=== PATIENT | female | born 1985 | race African-American/Black ===

== ENCOUNTER 2017-10-04 01:23 | Emergency (ER) | payer BC, OTHER ==
[~2017-10-04] VITALS: Ht 170.2 cm; Wt 74.8 kg
--- NOTE | 2017-10-04 01:36 | NUR ---
Pt BIBRA/[employer] FOR 5150 HOLD FOR BIZARRE BEHAVIOR AND DANGER TO OTHERS. Pt IS REFUSING TO ANSWER ANY QUESTIONS. ON TRISHA WRIST RESTRAINTS FOR SAFETY. Pt IS HEARING VOICES AND TALKING OUT LOUD.
[2017-10-04 02:14] LABS: BASOPHILS % (AUTO) 0.7 % (0.0-2.0); EOSINOPHILS % (AUTO) 3.2 % (0.0-6.0); HEMATOCRIT 36 % (33-45); HEMOGLOBIN 12.1 g/dL (11.5-14.8); LYMPHOCYTES # (AUTO) 1.9 /CMM (0.8-4.8); LYMPHOCYTES % (AUTO) 27.5 % (20.0-44.0); MEAN CORPUSCULAR HGB CONC 34 g/dl (31.0-36.0); MEAN CORPUSCULAR VOLUME 83 fL (82-100); MONOCYTES # (AUTO) 0.6 /CMM (0.1-1.30); MONOCYTES % (AUTO) 8.8 % (2.0-12.0); NEUTROPHILS # (AUTO) 4.1 /CMM (1.8-8.9); NEUTROPHILS % (AUTO) 59.8 % (43.0-81.0); PLATELET COUNT (AUTO) 268 /CMM (150-450); RED BLOOD CELL COUNT(AUTO) 4.36 MIL/uL (4.0-5.2); WHITE BLOOD COUNT (AUTO) 6.8 K/uL (4.3-11.0)
[2017-10-04 02:29] LABS: ALANINE AMINOTRANSFERASE 20 U/L (12-78); ALBUMIN 3.5 g/dL (3.4-5.0); ALCOHOL, BLOOD < 3 mg/dL (0-0); ALKALINE PHOSPHATASE 55 U/L (46-116); ASPARTATE AMINOTRANSFERASE 15 U/L (15-37); BILIRUBIN,DIRECT 0.1 mg/dL (0.0-0.2); BILIRUBIN,TOTAL 0.3 mg/dL (0.2-1.0); CALCIUM, SERUM 9.3 mg/dL (8.5-10.1); CARBON DIOXIDE 28 mmol/L (21-32); CHLORIDE 105 mmol/L (98-107); CREATININE 0.8 mg/dL (0.6-1.3); GLUCOSE 103 mg/dL (74-106); POTASSIUM 3.4 mmol/L (3.5-5.1); SODIUM SERUM 139 mmol/L (136-145); TOTAL PROTEIN, SERUM 7.3 g/dL (6.4-8.2); UREA NITROGEN, BLOOD 8 mg/dL (7-18)
[2017-10-04 02:37] LABS: ACETAMINOPHEN 0 ug/ml (10-30)
--- NOTE | 2017-10-04 02:48 | NUR ---
CALLED JEMIMA HORTON FOR PSYCH EVALUATION
--- NOTE | 2017-10-04 03:11 | NUR ---
UNABLE TO OBTAIN URINE SAMPLE AT THIS TIME FROM Pt. PER Pt SAID SHE DOES NOT NEED TO PEE.
--- NOTE | 2017-10-04 03:47 | NUR ---
PSYCH EVAL COMPLETE. FIRST OFFICER WILL KEEP PT ON HOLD AT THIS TIME DUE TO BEHAVIOR
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
[2017-10-04] MEDS ORDERED: HALOPERIDOL LACTATE INJ 5 MG/ML VIAL IM ONE (04:00)
[2017-10-04] MEDS ORDERED: POTASSIUM CHLORIDE 20 MEQ TAB.PRT.SR PO ONE ×2 (04:00→04:08)
[2017-10-04] MEDS ORDERED: diphenhydrAMINE HCL 50 MG/ML VIAL IM ONE (04:00)
[2017-10-04] MEDS ORDERED: LORAZEPAM INJ 2 MG/ML VIAL IM ONE (04:00)
[2017-10-04] MEDS ORDERED: HALOPERIDOL LACTATE INJ 5 MG/ML VIAL ONE (04:07)
[2017-10-04] MEDS ORDERED: diphenhydrAMINE HCL 50 MG/ML VIAL ONE (04:07)
[2017-10-04] MEDS ORDERED: LORAZEPAM INJ 2 MG/ML VIAL ONE (04:08)
--- NOTE | 2017-10-04 04:28 | NUR ---
KDUR 20MEQ GIVEN CRUSHED WITH PUDDING. ATIVAN 2MG, BENADRYL 50MG, HALDOL 5MG GIVEN IM ON RT ARM. COVERED Pt WITH A BLANKET KEEP WARM & COMFORTABLE.
--- NOTE | 2017-10-04 06:05 | NUR ---
Pt ASLEEP IN BED. VSS. BG 108/71, HR 72, R16, 02 ON RA 100%. AFEBRILE. RESPIRATIONS EVEN AND UNLABORED.
--- NOTE | 2017-10-04 07:01 | NUR ---
REPORT GIVEN TO BRAYAN JENKINS FOR Pt's PAUL. Pt ASLEEP IN BED. REMAINS IN STABLE CONDITION. RESPIRATIONS EVEN & UNLABORED.
--- NOTE | 2017-10-04 08:00 | NUR ---
Patient is resting comfortably in bed with eyes closed. Easily aroused. VSS
--- NOTE | 2017-10-04 10:15 | NUR ---
CALLED FOR FOOD TRAY.
--- NOTE | 2017-10-04 11:00 | NUR ---
PT EATING AT BS. ALERT, ORIENTED X 4. VSS. NAD NOTED. AMBULATORY WITH STEADY GAIT.
[2017-10-04 11:29] VITALS: BP 97/68
--- NOTE | 2017-10-04 11:29 | NUR ---
Patient discharged to home in stable condition. Written and verbal after care instructions given. Patient verbalizes understanding of instruction.
== END 2017-10-04 11:30 | disposition home or self-care (01) ==
LOC: ER 01:23
DX: F23 Brief psychotic disorder (principal); E87.6 Hypokalemia; J45.909 Unspecified asthma, uncomplicated; F31.9 Bipolar disorder, unspecified
CPT/HCPCS: 36415; 80048-TC; 80076-TC; 84703-TC; 85025-TC; A4606; G0480; J1200; J1630; J2060; Z7610

== ENCOUNTER 2021-06-22 20:56 | Emergency (ER) | payer BC, MEDICAID ==
[~2021-06-22] VITALS: Ht 165.1 cm; Wt 79.8 kg
[2021-06-23 00:48] LABS: BASOPHILS % (AUTO) 0.4 % (0.0-2.0); EOSINOPHILS % (AUTO) 1.3 % (0.0-6.0); HEMATOCRIT 41 % (33-45); LYMPHOCYTES % (AUTO) 41.4 % (20.0-44.0); MEAN CORPUSCULAR HGB CONC 32 g/dl (31.0-36.0); MEAN CORPUSCULAR VOLUME 85 fL (82-100); MONOCYTES # (AUTO) 0.4 K/uL (0.1-1.30); MONOCYTES % (AUTO) 8.7 % (2.0-12.0); NEUTROPHILS # (AUTO) 2.3 K/uL (1.8-8.9); NEUTROPHILS % (AUTO) 48.2 % (43.0-81.0); PLATELET COUNT (AUTO) 258 K/uL (150-450); RED BLOOD CELL COUNT(AUTO) 4.79 MIL/uL (4.0-5.2); WHITE BLOOD COUNT (AUTO) 4.8 K/uL (4.3-11.0)
[2021-06-23 00:52] LABS: BILIRUBIN,URINE NEGATIVE (NEGATIVE); COLOR,URINE YELLOW (YELLOW); LEUKOCYTE ESTERASE ,URINE LARGE (NEGATIVE); NITRITE, URINE NEGATIVE (NEGATIVE); PROTEIN,URINE NEGATIVE (NEGATIVE); UGLUCOSE NEGATIVE (NEGATIVE); UROBILINOGEN,URINE 0.2 EU/dL (0.2)
[2021-06-23 01:08] LABS: ALANINE AMINOTRANSFERASE 18 U/L (12-78); ALBUMIN 3.1 g/dL (3.4-5.0); ALKALINE PHOSPHATASE 61 U/L (46-116); ASPARTATE AMINOTRANSFERASE 14 U/L (15-37); BILIRUBIN,DIRECT 0.1 mg/dL (0.0-0.2); BILIRUBIN,TOTAL 0.3 mg/dL (0.2-1.0); CALCIUM, SERUM 8.9 mg/dL (8.5-10.1); CARBON DIOXIDE 25 mmol/L (21-32); CHLORIDE 108 mmol/L (98-107); CREATININE 0.7 mg/dL (0.6-1.3); GLUCOSE 115 mg/dL (74-106); SODIUM SERUM 142 mmol/L (136-145); TOTAL PROTEIN, SERUM 6.8 g/dL (6.4-8.2); UREA NITROGEN, BLOOD 6 mg/dL (7-18)
[2021-06-23 01:10] LABS: ACETAMINOPHEN 0 ug/ml (10-30); ALCOHOL, BLOOD < 3 mg/dL (0-0)
[2021-06-23] MEDS ORDERED: POTASSIUM CHLORIDE 20 MEQ TAB.PRT.SR PO ONE ×2 (05:46→06:00)
[2021-06-23 07:30] LABS: BACTERIA,URINE Few /HPF (None Seen); SQUAMOUS EPITHELIAL CELL,UR Moderate /HPF (None Seen)
[2021-06-23 07:33] LABS: MUCUS,URINE Few /LPF (None Seen)
[2021-06-23 17:22] VITALS: BP 117/64
[2021-06-23] MEDS ORDERED: CEPHALEXIN MONOHYDRATE 500 MG CAPSULE PO ONE (22:55)
[2021-06-23] MEDS: CEPHALEXIN MONOHYDRATE 500 MG CAPSULE PO SCH (23:50)
[2021-06-24] MEDS: CEPHALEXIN MONOHYDRATE 500 MG CAPSULE PO SCH (10:12)
== END 2021-06-24 13:38 ==
LOC: ER 20:58
DX: R46.2 Strange and inexplicable behavior (principal); F31.9 Bipolar disorder, unspecified; U07.1 COVID-19; N39.0 Urinary tract infection, site not specified; E87.6 Hypokalemia; J45.909 Unspecified asthma, uncomplicated; R82.5 Elevated urine levels of drugs, medicaments and biological substances
CPT/HCPCS: 36415; 80307; 87086; 87426; 99285; C9803

== ENCOUNTER 2021-09-02 11:57 | Emergency (ER) | payer MEDICAID ==
[~2021-09-02] VITALS: Ht 160 cm; Wt 68.0 kg
[2021-09-02 12:24] LABS: BASOPHILS # (AUTO) 0.1 K/uL (0.0-0.2); BASOPHILS % (AUTO) 0.8 % (0.0-2.0); EOSINOPHILS % (AUTO) 4.8 % (0.0-6.0); HEMATOCRIT 43 % (33-45); HEMOGLOBIN 13.8 g/dL (11.5-14.8); LYMPHOCYTES # (AUTO) 1.8 K/uL (0.8-4.8); LYMPHOCYTES % (AUTO) 25.9 % (20.0-44.0); MEAN CORPUSCULAR HGB CONC 32 g/dl (31.0-36.0); MEAN CORPUSCULAR VOLUME 84 fL (82-100); MONOCYTES # (AUTO) 0.5 K/uL (0.1-1.30); MONOCYTES % (AUTO) 7.1 % (2.0-12.0); NEUTROPHILS # (AUTO) 4.2 K/uL (1.8-8.9); NEUTROPHILS % (AUTO) 61.4 % (43.0-81.0); PLATELET COUNT (AUTO) 284 K/uL (150-450); RED BLOOD CELL COUNT(AUTO) 5.06 MIL/uL (4.0-5.2); WHITE BLOOD COUNT (AUTO) 6.8 K/uL (4.3-11.0)
[2021-09-02 12:48] LABS: CARBON DIOXIDE 27 mmol/L (21-32); CHLORIDE 106 mmol/L (98-107); POTASSIUM 3.9 mmol/L (3.5-5.1); SODIUM SERUM 137 mmol/L (136-145)
[2021-09-02 13:08] LABS: ALANINE AMINOTRANSFERASE 18 U/L (12-78); ALBUMIN 3.5 g/dL (3.4-5.0); ALCOHOL, BLOOD < 3 mg/dL (0-0); ALKALINE PHOSPHATASE 73 U/L (46-116); ASPARTATE AMINOTRANSFERASE 13 U/L (15-37); BILIRUBIN,DIRECT 0.1 mg/dL (0.0-0.2); BILIRUBIN,TOTAL 0.4 mg/dL (0.2-1.0); CALCIUM, SERUM 9.1 mg/dL (8.5-10.1); CREATININE 0.8 mg/dL (0.6-1.3); GLUCOSE 106 mg/dL (74-106); TOTAL PROTEIN, SERUM 7.5 g/dL (6.4-8.2); UREA NITROGEN, BLOOD 7 mg/dL (7-18)
[2021-09-02 13:17] LABS: ACETAMINOPHEN 0 ug/ml (10-30)
[2021-09-02 15:16] LABS: BILIRUBIN,URINE NEGATIVE (NEGATIVE); COLOR,URINE YELLOW (YELLOW); LEUKOCYTE ESTERASE ,URINE NEGATIVE (NEGATIVE); NITRITE, URINE NEGATIVE (NEGATIVE); PH,URINE 5.5 (5.0-8.0); PROTEIN,URINE NEGATIVE (NEGATIVE); UGLUCOSE NEGATIVE (NEGATIVE); UROBILINOGEN,URINE 0.2 EU/dL (0.2)
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
[2021-09-02 16:00] LABS: RBC,URINE 0-2 /HPF (0-2); WBC,URINE 0-2 /HPF (0-3)
[2021-09-02 16:01] LABS: BACTERIA,URINE MANY /HPF (None Seen); CALCIUM CARBONATE CRYSTALS,UR None Seen /HPF (None Seen); CALCIUM OXALATE CRYSTALS,UR MODERATE /HPF (None Seen); CALCIUM PHOSPHATE CRYSTALS,UR None Seen /HPF (None Seen); COARSE GRANULAR CASTS,URINE None Seen /LPF (None Seen); CYSTINE CRYSTALS,URINE None Seen /HPF (None Seen); FATTY CASTS,URINE None Seen /LPF (None Seen); FINE GRANULAR CASTS,URINE None Seen /LPF (None Seen); HYALINE CASTS, URINE None Seen /LPF (None Seen); MUCUS,URINE None Seen /LPF (None Seen); OTHER CRYSTALS,URINE None Seen /HPF (None Seen); RED BLOOD CELL CASTS,URINE None Seen /LPF (None Seen); SPERM,URINE None Seen /HPF (None Seen); SQUAMOUS EPITHELIAL CELL,UR MOD /HPF (None Seen); TRICHOMONAS,URINE None Seen /HPF (None Seen); TRIPLE PHOSPHATE CRYSTAL,UR None Seen /HPF (None Seen); TYROSINE CRYSTAL,URINE None seen /HPF (None Seen); URIC ACID CRYSTALS,URINE None Seen /HPF (None Seen); URINE AMORPHOUS PHOSPHATES None Seen /HPF (None Seen); URINE AMORPHOUS URATE None Seen /HPF (None Seen); WAXY CASTS,URINE None Seen /LPF (None Seen); YEAST,URINE None Seen /HPF (None Seen)
[2021-09-02 19:42] VITALS: BP 115/64
--- NOTE | 2021-09-02 20:11 | NUR ---
Patient discharged to home in stable condition. Written and verbal after care instructions given. Patient verbalizes understanding of instruction.
== END 2021-09-02 20:23 | disposition home or self-care (01) ==
LOC: ER 12:00
DX: R46.1 Bizarre personal appearance (principal); J45.909 Unspecified asthma, uncomplicated; Z59.00 Homelessness unspecified
CPT/HCPCS: 36415; 80048-TC; 80076-TC; 81001; 85025-TC; G0480